=== PATIENT | male | born 1940 | race Caucasian/White ===

== ENCOUNTER → 2017-09-21 09:45 | Outpatient (CLI) | payer MEDICARE, SELFPAY ==
--- NOTE | 2017-09-21 | DI.RAD.S_ITS ---
PROCEDURE: FL GUIDED PICC PLACEMENT INDICATIONS: UTI COMPARISON: None. FINDINGS: PICC was placed by the intravenous therapy team from the left side. Fluoroscopic spot film demonstrates tip of PICC in the region of lower SVC. IMPRESSION: Tip of PICC lies within the region of lower SVC. Dictated by: Vern Cannon M.D. on 09/21/2017 at 11:26 Approved by: Vern Cannon M.D. on 09/21/2017 at 11:26
== END ==
PROVIDERS: PCP Family Medicine; Visit Provider Family Medicine
DX: N39.0 Urinary tract infection, site not specified (principal)
CPT/HCPCS: 36569; 77001

== ENCOUNTER → 2022-07-05 09:03 | Outpatient (CLI) | payer MEDICARE, SELFPAY ==
--- NOTE | 2022-07-05 | DI.RAD.S_ITS ---
PROCEDURE: XR WRIST RT MIN 3V INDICATIONS: PAIN IN JOINTS TECHNIQUE: 3 views of the wrist were acquired. COMPARISON: [facility], CR, XR HAND RT MIN 3V, 07/05/2022, 9:10. FINDINGS: Bones: No fractures or dislocations. No suspicious bony lesions. Scaphoid view: Slight cortical irregularity of the scaphoid. It is not well seen on all views. Soft tissues: No suspicious soft tissue calcifications. IMPRESSION: Slight cortical irregularity of the scaphoid. Recommend correlation point tenderness as this could be artifactual. However, in presence of point tenderness or trauma, short interval follow-up is recommended as fracture cannot be excluded. Dictated by: Liset Ribeiro M.D. on 07/05/2022 at 17:11 Approved by: Liset Ribeiro M.D. on 07/05/2022 at 17:12
--- NOTE | 2022-07-05 | DI.RAD.S_ITS ---
PROCEDURE: XR HAND RT MIN 3V INDICATIONS: PAIN IN JOINTS TECHNIQUE: 3 views of the hand(s) acquired. COMPARISON: [facility], CR, XR WRIST RT MIN 3V, 07/05/2022, 9:10. FINDINGS: Bones: Slight irregularity of the scaphoid, better appreciated on scaphoid view of x-ray wrist on 07/05/2022. There is diffuse IP degenerative narrowing most severe at the PIP and DIP joints of the 2nd and 3rd digits. Carpal bones are normally aligned. No suspicious bony lesions. Soft tissues: No suspicious soft tissue calcifications. IMPRESSION: Irregularity of the scaphoid bone, not well seen on all views. This could be artifactual. However, in the presence of point tenderness and/or trauma, fracture cannot be definitively excluded. Recommend clinical correlation and follow-up imaging as indicated. IP arthritic narrowing. Dictated by: Liset Ribeiro M.D. on 07/05/2022 at 17:12 Approved by: Liset Ribeiro M.D. on 07/05/2022 at 17:13
== END ==
PROVIDERS: PCP Family Medicine; Referring Provider Family Medicine; Visit Provider Family Medicine
DX: M19.041 Primary osteoarthritis, right hand (principal); M25.541 Pain in joints of right hand
CPT/HCPCS: 73110; 73130

== ENCOUNTER 2024-04-05 10:19 | Emergency (ER) | payer MEDICARE, SELFPAY ==
[2024-04-05] VITALS (9 sets, daily range): BP systolic 117–178; BP diastolic 55–104; PULSE 64–95; RESP 13–25; TEMP 36.9; O2SAT 96–98; BMI 29.2
--- NOTE | 2024-04-05 10:40 | EKG_ITS ---
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
[2024-04-05 10:49] LABS: Add Manual Diff / Slide Review NO; Basophils Absolute Auto 0 /uL (0-100); Basophils Percent Auto 0.3 % (0-2); Eosinophils Absolute Auto 0 /uL (0-450); Eosinophils Percent Auto 0.1 % (2-4); Hemoglobin 13.5 g/dL (13.5-17.5); Lymphocytes Absolute Auto 1700 /uL (1100-4500); Lymphocytes Percent Auto 14.8 % (25-40); Mean Corpuscular HGB Conc 33.9 % (30-36); Mean Corpuscular Hemoglobin 31.2 PG (26-34); Monocytes Absolute Auto 700 /uL (0-900); Monocytes Percent Auto 5.5 % (3-14); Neutrophils Absolute Auto 9400 /uL (1500-7000); Neutrophils Percent Auto 79.3 % (50-75); Platelet Count 233 X10^3/uL (150-400); Red Blood Cell Count 4.35 X10^6/uL (4.5-5.9); Red Cell Distribution Width 13.9 % (11.6-14.8); White Blood Cell Count 11.8 X10^3/uL (4.5-11.0)
--- NOTE | 2024-04-05 10:54 | ED_ITS ---
HPI - GI Bleed General Chief complaint: GI Bleed Stated complaint: Blood in stool Time Seen by Provider: 04/05/24 10:45 Source: patient Mode of arrival: Ambulatory History of Present Illness HPI Narrative: Patient here for painless bright red blood per rectum this morning. No dizziness or shortness of breath no abdominal pain no back pain. Not on any blood thinners. Patient was constipated 2 weeks ago and had good resolution with enemas. Has had good easy passing of stools with ease. Took Dulcolax yesterday. Awoke this morning and had bowel movement with bright red blood. Has been many years since last colonoscopy, does have history of diverticulosis. No night sweats or weight loss. Examination is reassuring. No hemorrhoids on external exam. No palpable internal hemorrhoids on digital exam. Scant hemoccult positive Related Data Home Medications Medication Instructions Recorded Confirmed CHOLECALCIFEROL (VITAMIN D3) 2,000 iu PO BID ##0 06/29/11 04/05/24 (VITAMIN D) VITAMIN E (#E-400) 250 iu PO SEEINSTR ##0 06/29/11 04/05/24 amlodipine 5 mg tablet (Norvasc) 5 mg PO DAILY ##0 02/26/17 04/05/24 hydrochlorothiazide 25 mg tablet 50 mg PO QDAY ##0 02/26/17 04/05/24 carvedilol 3.125 mg tablet 3.125 mg PO DAILY 04/05/24 04/05/24 leuprolide (3 month) 22.5 mg (3 22.5 mg SUBCUT SEEINSTR 04/05/24 04/05/24 month) subcutaneous syringe ([employer]) losartan 50 mg tablet 50 mg PO DAILY 04/05/24 04/05/24 rosuvastatin 5 mg tablet 5 mg PO DAILY 04/05/24 04/05/24 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 HEENT: Negative sinus pain, ear pain, sore throat RESPIRATORY: Negative dyspnea, cough CARDIOVASCULAR: Negative chest pain, palpitations GASTROINTESTINAL: Negative nausea, vomiting, abdominal pain, positive rectal bleeding : Negative dysuria, frequency, hematuria MUSCULOSKELETAL: Negative muscle or bony pain SKIN: Negative rash, skin lesions NEUROLOGIC: Negative weakness, numbness ROS Unobtainable: All systems reviewed & are unremarkable except as noted in HPI and below Patient History Social History Smoking Status: Unknown if ever smoked Smoking Status: Unknown if ever smoked Exam Narrative Exam Narrative: GENERAL: in no distress, not toxic not dyspneic HEAD: Normocephalic. EYES: Pupils equal round pink conjunctiva ENT: Mucous membranes moist. NECK: Trachea midline. CARDIOVASCULAR: Regular rate and rhythm RESPIRATORY: Clear to auscultation. Breath sounds equal bilaterally. No wheezes, rales, or rhonchi. GASTROINTESTINAL: Abdomen soft, non-tender, rectal exam no internal or external hemorrhoids. No bright red blood on glove. Scant Hemoccult positive on Hemoccult. EXTREMITIES: No gross deformities. BACK: No flank tenderness. NEURO: AOx4. Clear speech SKIN: Warm and dry PSYCH: Not anxious, is cooperative Initial Vital Signs Initial Vital Signs: Vital Signs Temperature 98.4 F 04/05/24 10:27 Pulse Rate 64 04/05/24 10:27 Respiratory Rate 14 04/05/24 10:27 Blood Pressure 136/104 H 04/05/24 10:27 Pulse Oximetry 98 04/05/24 10:27 Oxygen Delivery Method Room Air 04/05/24 10:27 Course Orders Ordered: ED Orders 04/05/24 10:35 Complete Blood Count AUTO DIFF Stat Comprehensive Metabolic Panel Stat PTT Partial Thromboplastin Nicholas Stat Prothrombin Time INR Stat Type and Screen Stat EKG-12 Lead Stat 04/05/24 10:53 CT angio Abd/Pel GI Bleed Stat Discontinued Medications Ondansetron HCl (Ondansetron 4 Mg/2 Ml Inj) 4 mg IV NOW PRN PRN Reason: Nausea And Vomiting Ondansetron HCl (Ondansetron 4 Mg Odt) 4 mg SL NOW PRN PRN Reason: Nausea And Vomiting Pantoprazole Sodium (Pantoprazole 40 Mg Vial) 80 mg IV NOW ONE Stop: 04/05/24 10:36 Last Admin: 04/05/24 10:57 Dose: 80 mg Documented By: RB Sodium Chloride (Sodium Chloride 0.9% Flush) 50 ml IV NOW ONE Stop: 04/05/24 10:54 Last Admin: 04/05/24 11:42 Dose: 50 ml Documented By: RB Vital Signs Vital signs: Vital Signs - 8 hr 04/05/24 10:27 04/05/24 10:30 04/05/24 10:31 Temperature 98.4 F Pulse Rate 64 74 74 Respiratory Rate 14 Blood Pressure 136/104 H Pulse Oximetry 98 97 96 Oxygen Delivery Method Room Air 04/05/24 10:31 04/05/24 11:00 04/05/24 11:01 Temperature Pulse Rate 87 95 H Respiratory Rate 22 25 H Blood Pressure 136/104 H Pulse Oximetry 96 96 Oxygen Delivery Method 04/05/24 11:01 04/05/24 11:30 04/05/24 11:31 Temperature Pulse Rate 86 87 Respiratory Rate 13 19 Blood Pressure 150/69 H Pulse Oximetry 96 96 Oxygen Delivery Method 04/05/24 11:31 04/05/24 12:00 04/05/24 12:00 Temperature Pulse Rate 86 Respiratory Rate 25 H Blood Pressure 117/55 L 131/75 Pulse Oximetry 96 Oxygen Delivery Method 04/05/24 12:30 04/05/24 12:30 Temperature Pulse Rate 94 H Respiratory Rate 19 Blood Pressure 178/70 H Pulse Oximetry 97 Oxygen Delivery Method MDM - GI Bleed Lab Data 04/05/24 10:35 04/05/24 10:35 Labs: Lab Results 04/05/24 Range/Units 10:35 WBC 11.8 H (4.5-11.0) X10^3/uL RBC 4.35 L (4.5-5.9) X10^6/uL Hgb 13.5 (13.5-17.5) g/dL Hct 40.0 L (41-53) % MCV 92.0 (80-100) fL MCH 31.2 (26-34) PG MCHC 33.9 (30-36) % RDW 13.9 (11.6-14.8) % Plt Count 233 (150-400) X10^3/uL Neut % (Auto) 79.3 H (50-75) % Lymph % (Auto) 14.8 L (25-40) % [place] % (Auto) 5.5 (3-14) % Eos % (Auto) 0.1 L (2-4) % Baso % (Auto) 0.3 (0-2) % Neut # (Auto) 9400 H (3846-5303) /uL Lymph # (Auto) 1700 (7680-9594) /uL [place] # (Auto) 700 (0-900) /uL Eos # (Auto) 0 (0-450) /uL Baso # (Auto) 0 (0-100) /uL PT 12.4 (9.4-12.5) SECONDS INR 1.1 (0.9-1.3) APTT 31 (25.1-36.5) SECONDS Sodium 135 L (137-145) mmol/L Potassium 3.6 (3.4-5.1) mmol/L Chloride 101 (98-107) mmol/L Carbon Dioxide 26 (22-32) mmol/L BUN 33 H (9-20) mg/dL Creatinine 0.88 (0.66-1.25) mg/dL Estimated GFR > 60 (>60) mL/min BUN/Creatinine Ratio 37.5 H (6-22) Glucose 119 H (80-110) mg/dL Calcium 9.3 (8.4-10.2) mg/dL Total Bilirubin 1.2 (0.2-1.3) mg/dL AST 38 (17-59) IU/L ALT 28 (<50) IU/L Alkaline Phosphatase 79 (38-126) U/L Total Protein 7.4 (6.3-8.2) g/dL Albumin 4.2 (3.5-5.0) g/dL Globulin 3.2 (1.7-4.1) g/dL Albumin/Globulin Ratio 1.3 (1.0-2.8) Blood Type A Positive Antibody Screen Negative Point of Care Testing Stool Occult Blood Positive Imaging Data CT scan - abdomen/pelvis: Radiologist's Impression: [address] [address] [address] Scan Report Signed Patient: Omer Munroe MR#: [id number] : 1940 Acct:[id number] Age/Sex: 84 / M Date of Service: 04/05/24 Loc: ED Accession Number: [id number] Procedure: CT angio Abd/Pel GI Bleed Ordering Provider: Chris Dennis MD PROCEDURE: CT ANGIO ABD/PEL GI BLEED INDICATIONS: GI Bleed TECHNIQUE: After the administration of intravenous contrast, 2.5 mm thick sections acquired from the diaphragm to the symphysis. 10 mm maximum-intensity projection (MIP) reformats were then acquired. For radiation dose reduction, the following was used: automated exposure control. COMPARISON: None. FINDINGS: Image Quality: Diagnostic. Abdominal aorta: Normal caliber. No dissection or aneurysm or significant stenotic disease. Mesenteric arteries: No significant stenosis. No branch filling defects. Renal arteries: No significant renal artery stenosis. OTHER: Lower Chest: No significant findings. Liver: No solid mass. Gallbladder: No radiopaque gallstones or wall thickening. Biliary ducts: No biliary dilation. Pancreas: No ductal dilation. Spleen: Size is within normal limits. Adrenal Glands: No adrenal nodules. Kidneys and Ureters: No hydronephrosis. No solid mass. No complex renal cystic lesion which requires follow up. Stomach and Bowel: Normal colonic caliber, without significant wall thickening. Mild diverticulosis without CT evidence of acute diverticulitis. In Peritoneum: No abnormal intraperitoneal fluid. No free air. Ventral Wall: No hernia. Abdominal Nodes: No retroperitoneal or mesenteric adenopathy by size criteria. Vessels: Aorta and inferior vena cava are normal in size. PELVIS: Pelvic Organs: Moderate prostatomegaly... Bladder: Unremarkable. Pelvic Nodes: No enlarged lymph nodes. Miscellaneous: Bilateral small fat containing inguinal hernias are seen. Bones: No aggressive osseous abnormality. Bilateral hip degenerative change. Bilateral hip joint effusions. Fluid present in the right greater trochanteric bursa is consistent with trochanteric bursitis. Lumbar degenerative change with canal stenosis at L4-L5. IMPRESSION: 1. No acute GI bleed occurred during the study. 2. Mild diverticulosis without evidence of acute diverticulitis. 3. Moderate prostatomegaly. 4. Remote cholecystectomy. 5. Bilateral hip degenerative change with associated bilateral hip joint effusions. 6. Right hip trochanteric bursitis. 7. Canal stenosis at L4-L5. Dictated by: Anish Bernabe M.D. on 04/05/2024 at 11:26 Approved by: Anish Bernabe M.D. on 04/05/2024 at 11:38 MDM Narrative Medical decision making narrative: Patient here for painless bright red blood per rectum this morning. No dizziness or shortness of breath no abdominal pain no back pain. Not on any blood thinners. Patient was constipated 2 weeks ago and had good resolution with enemas. Has had good easy passing of stools with ease. Took Dulcolax yesterday. Awoke this morning and had bowel movement with bright red blood. Has been many years since last colonoscopy, does have history of diverticulosis. No night sweats or weight loss. Examination is reassuring. No hemorrhoids on external exam. No palpable internal hemorrhoids on digital exam. Scant hemoccult positive After history and exam, CBC CMP PT INR EKG CT abdomen pelvis normal saline MDM Medical records reviewed: No recent visit for this complaint Differential considered: Includes but not limited to diverticulitis diverticulosis neoplasm hemorrhoid fissure Lab Test results independently reviewed as above. Pertinent findings: WBC 11.8 hemoglobin 13.5 at baseline, hematocrit 40, platelets 233, INR 1.1 sodium 135 BUN 33 creatinine 0.88 GFR greater than 60, A positive blood Independently reviewed EKG sinus rhythm rate [address] elevation or depression Imaging studies independently reviewed: CT abdomen pelvis GI bleed protocol, no active bleeding. Diverticulosis without diverticulitis Consultations: 1:14 p.m.. General surgery did call back after patient discharge, dr magdaleno, agrees with treatment plan and follow up. Outpatient colonoscopy Treatments: Normal saline Protonix Re-evaluations: 12:33 p.m.. Updated patient results. Vital signs are reassuring. No bleeding here actively. Return precautions reviewed with patient. Patient does have primary care to follow up for outpatient colonoscopy, referral for General surgery given to him as well to help facilitate scheduling for colonoscopy. He desires discharge home. Discussion: Appropriate for discharge home exam is reassuring. Return precautions reviewed with patient. Vital signs are reassuring. Not toxic at discharge. Patient has painless GI bleed likely diverticulosis in origin. Referral for General surgery provided for close follow up colonoscopy. He desires discharge home. Diagnosis: Lower GI bleed, diverticulosis Discharge Plan Departure Patient Disposition: Home Clinical Impression: Lower gastrointestinal hemorrhage, Diverticulosis Instructions: Gastrointestinal Bleeding, DI for Diverticulosis Activity Restrictions/Additional Instructions: Your exam and blood work and imaging studies are reassuring. It is likely diverticulosis of the colon is causing your bleeding today. However your vital signs sent results are reassuring. Please call provided general surgery office on Monday for close follow up for a colonoscopy. Return immediately if worse if any questions or concerns of increased bleeding or any dizziness or feeling faint. Return if worse if any questions or concerns. You may continue your home medications. Prescriptions: No Action CHOLECALCIFEROL (VITAMIN D3) (VITAMIN D) 2,000 iu PO BID Qty: 0 VITAMIN E (#E-400) 250 iu PO SEEINSTR Qty: 0 Rx Instructions: Patient takes medication twice daily 500IU in the morning and 250IU at night. amlodipine [Norvasc] 5 MG tablet 5 mg PO DAILY Qty: 0 hydrochlorothiazide 25 MG tablet 50 mg PO QDAY Qty: 0 losartan 50 mg tablet 50 mg PO DAILY carvedilol 3.125 mg tablet 3.125 mg PO DAILY rosuvastatin 5 mg tablet 5 mg PO DAILY Vyndamax 61 mg capsule 61 mg PO DAILY Eligard (3 month) 22.5 mg Syringe 22.5 mg SUBCUT SEEINSTR Rx Instructions: Patient got last injections 02/27/2024 and is slated to get it in clinic every 3 months. Referrals: Nicho Jones MD [Primary Care Provider] - Elsa Magdaleno MD [Physician] - Stand Alone Forms: Patient Portal/API/Survey
[2024-04-05 10:55] LABS: INR 1.1 (0.9-1.3); Prothrombin Time 12.4 SECONDS (9.4-12.5)
[2024-04-05 10:57] LABS: PTT Partial Thromboplastin Tim 31 SECONDS (25.1-36.5)
[2024-04-05] MEDS: PANTOPRAZOLE 40 MG VIAL 80 MG IV (10:57)
[2024-04-05 10:58] LABS: Alanine Aminotransferase 28 IU/L (<50); Albumin 4.2 g/dL (3.5-5.0); Albumin Globulin Ratio 1.3 (1.0-2.8); Alkaline Phosphatase 79 U/L (38-126); Aspartate Aminotransferase 38 IU/L (17-59); BUN Creatinine Ratio 37.5 (6-22); Bilirubin Total 1.2 mg/dL (0.2-1.3); Blood Urea Nitrogen 33 mg/dL (9-20); Calcium 9.3 mg/dL (8.4-10.2); Carbon Dioxide 26 mmol/L (22-32); Chloride 101 mmol/L (98-107); Estimated Glomerular Filt Rate > 60 mL/min (>60); Globulin 3.2 g/dL (1.7-4.1); Glucose 119 mg/dL (80-110); HEMOLYSIS < 15 (0-50); Potassium 3.6 mmol/L (3.4-5.1); Sodium 135 mmol/L (137-145); Total Protein 7.4 g/dL (6.3-8.2)
[2024-04-05] MEDS: SODIUM CHLORIDE 0.9% FLUSH 50 ML IV (11:42)
== END 2024-04-05 12:38 | disposition home or self-care (01) ==
PROVIDERS: Emergency Provider Emergency Medicine; PCP Family Medicine
DX: K57.91 Diverticulosis of intestine, part unspecified, without perforation or abscess with bleeding (principal)
CPT/HCPCS: 36415; 74174; 80053; 82272; 85025; 85610; 85730; 86850; 86900; 86901; 93005; 96374; 99284; J2470; Q9967

== ENCOUNTER 2024-07-04 07:00 | Day surgery (SDC) | payer MEDICARE, SELFPAY ==
[2024-05-10 14:38] VITALS: BMI 29.8
--- NOTE | 2024-07-04 | PATH_ITS ---
[facility] Accession Number: [id number] No. of containers..01 Tissue . 01 Material submitted: . colon - TRANSVERSE POLYPS . 01 Diagnosis: A: TRANSVERSE COLON, POLYPECTOMIES: Fragments of tubular adenoma. [facility] 07/09/2024 1459 Local . 01 Electronically signed: . Stephanie Quick MD, Pathologist NPI- [id number] . 01 Gross description: . Received in formalin with two identifiers and transverse polyps, are seven navarrete soft tissue fragments ranging from 0.3 x 0.2 x 0.1 cm to 0.6 x 0.5 x 0.5 cm. The two largest fragments are bisected, and the specimen is submitted entirely in cassette A1. ([id number]) /DIMA 07/07/2024625 Local . 01 Pathologist provided ICD-10: Z12.11, K62.5 . 01 CPT . 483264 Specimen Comment: A courtesy copy of this report has been sent to [phone] Performed at: [address] [id number] MD Roel Rooney MD Phone: [phone]
[2024-07-04 07:26] VITALS: BP 152/79; PULSE 65; RESP 16; TEMP 36.2; O2SAT 97
[2024-07-04] MEDS: LACTATED RINGERS 1,000 ML 42 ML IV (07:29)
--- NOTE | 2024-07-04 07:47 | P.HP_ITS ---
History of Present Illness History of Present Illness Date Patient Seen: 07/04/24 Time Patient Seen: 07:48 Chief complaint: Colonoscopy Narrative: Omer is an 84-year-old man with rectal bleeding. See the office note from May for details. 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 History of prostate cancer Colon, diverticulosis Surgical History (Updated 05/10/24 @ 14:38 by Jerilyn Hyde RN) Hx of cardiac cath (02/14/17) S/P repair of hydrocele Hx of cholecystectomy Social History household members: spouse Smoking Status: Former smoker Meds Home Medications and Allergies Home Medications Medication Instructions Recorded Confirmed Type amlodipine 5 mg tablet (Norvasc) 5 mg PO DAILY ##0 02/26/17 07/04/24 History carvedilol 3.125 mg tablet 3.125 mg PO BID 04/05/24 07/04/24 History leuprolide (3 month) 22.5 mg (3 22.5 mg SUBCUT SEEINSTR 04/05/24 07/04/24 History month) subcutaneous syringe (Eligard) losartan 50 mg tablet 50 mg PO DAILY 04/05/24 07/04/24 History rosuvastatin 5 mg tablet 5 mg PO QPM 04/05/24 07/04/24 History 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 (Vyndamax) 61 mg PO DAILY 04/05/24 07/04/24 History aspirin 81 mg tablet,delayed 81 mg PO DAILY 05/07/24 07/04/24 History release sodium,potassium,mag sulfates 17.5 See Rx Instructions PO .COMPLEX 05/09/24 Rx gram-3.13 gram-1.6 gram oral soln #354 mL (Suprep Bowel Prep Kit) cholecalciferol (vitamin D3) 50 25 mcg PO DAILY 05/10/24 07/04/24 History mcg (2,000 unit) tablet (Vitamin D3) hydrochlorothiazide 50 mg tablet 50 mg PO DAILY 05/10/24 07/04/24 History magnesium glycinate 100 mg (as 500 mg PO BID 05/10/24 07/04/24 History glycinate) tablet Allergies Allergy/AdvReac Type Severity Reaction Status Date / Time niacin [NIACIN] Allergy Mild RASH Verified 04/05/24 10:37 ciprofloxacin Allergy Paralysis Verified 05/10/24 14:22 of lower extremities levofloxacin [From Levaquin] Allergy Verified 05/07/24 13:08 fluoroquinolones Allergy Uncoded 07/04/24 07:19 Exam Vital Signs (past 8 hours): - 07/04/24 07:26 Temperature 97.2 F L Pulse Rate 65 Respiratory Rate 16 Blood Pressure 152/79 H Pulse Oximetry 97 Oxygen Delivery Method Room Air Oxygen Delivery Method Room Air Const General: healthy appearing Assessment & Plan Assessment and plan (1) Rectal bleeding: Status: Acute Plan Colonoscopy Time-Based Coding :: [TOTAL MINUTES] spent with patient and on the chart (including review of chart, obtaining history, exam, reviewing outside data, placing orders, documenting exam and treatment plan, and counseling patient) on [DATE]. [employer] Territory Sales Representative Document charge(s): No
[2024-07-04 08:46] VITALS: BP 128/79; PULSE 60; RESP 16; TEMP 37.2; O2SAT 97
[2024-07-04 08:52] VITALS: BP 128/79; PULSE 63; RESP 16; TEMP 37.1; O2SAT 98
--- NOTE | 2024-07-04 08:57 | PM.OP.COLON ---
Operative Date/Time/Diagnoses Date of procedure: 07/04/24 Time of procedure: 08:58 Pre-op diagnosis: Rectal bleeding Post-op diagnosis: same Procedure & Clinicians Study performed: Colonoscopy Same procedure as scheduled: Yes Surgeon: Charlie Hanson Procedure Notes Procedure in detail: Surgeon: Charlie Hanson MD Anesthesia: Sissy Curtis PUMP AND BLOWER OPERATOR Procedure: The patient was brought to the endoscopy suite, placed in left lateral decubitus position. The patient was connected to monitoring devices. A time-out was performed. Sedation was administered. Once the patient was adequately sedated, a digital rectal exam was performed and was normal. The scope was then inserted and advanced to the cecum where the appendiceal orifice was identified and photographed. The scope was then slowly withdrawn over greater than 6 minutes. The mucosa was thoroughly inspected. There were to polyps, each about 1 cm in the transverse colon removed with hot snare and sent together. The scope was retroflexed in the rectum. Were some internal hemorrhoids noted. The scope was straightened and removed. The patient was awakened and brought to recovery. Scope withdrawal time: 9 minute Sedation time: 23 minutes EBL: 2 mL Findings: Two 1 cm polyps in the transverse colon Post-procedure Disposition: PACU
== END 2024-07-04 09:02 | disposition home or self-care (01) ==
PROVIDERS: PCP Family Medicine; Referring Provider Surgery; Visit Provider Surgery
PROC: 0DJD8ZZ Inspection of Lower Intestinal Tract, Via Natural or Artificial Opening Endoscopic (ICD-10-PCS; CPT 45378; principal; 2024-07-04 08:00)
DX: K62.5 Hemorrhage of anus and rectum (principal); K64.8 Other hemorrhoids; D12.3 Benign neoplasm of transverse colon
CPT/HCPCS: 45385; J2704

== ENCOUNTER → 2024-07-08 11:09 | Outpatient (CLI) | payer MEDICARE, SELFPAY ==
--- NOTE | 2024-07-08 11:11 | DI.RAD.S_ITS ---
PROCEDURE: XR CHEST 2V INDICATIONS: DYSPNEA TECHNIQUE: 2 views of the chest were acquired. COMPARISON: [facility], , CHEST FOR PICC PLACEMENT, 11/25/2016, 11:02. FINDINGS: Surgical changes and devices: None. Lungs and pleura: Lungs are clear. No pleural effusions or pneumothorax. Mediastinum: Mediastinal contours are normal. Heart size is normal. Atherosclerotic vascular calcifications. Bones and chest wall: No suspicious bony abnormalities. Soft tissues appear unremarkable. IMPRESSION: No acute cardiopulmonary abnormality is seen. Dictated by: Apolinar Enrique M.D. on 07/09/2024 at 3:15 Approved by: Apolinar Enrique M.D. on 07/09/2024 at 3:24
== END ==
PROVIDERS: PCP Family Medicine; Referring Provider Nurse Practitioner; Visit Provider Nurse Practitioner
DX: R06.09 Other forms of dyspnea (principal)
CPT/HCPCS: 71046